=== PATIENT | female | born 1970 | race Caucasian/White ===

== ENCOUNTER 2016-11-28 14:19 | Emergency (ER) | payer BC ==
[2016-11-28 14:41] VITALS: RESP 18
[2016-11-28] MEDS ORDERED: RX INFO: IV CONTRAST WAS GIVEN 1 EACH MISC MISCELLANE PRN (14:54)
--- NOTE | 2016-11-28 15:00 | ED ---
Abdominal Pain HPI - General Chief Complaint: Abdominal Pain Stated Complaint: lump on stomach Time Seen by Provider: 11/28/16 14:47 Source: patient, RN notes reviewed, old records reviewed Mode of arrival: ambulatory Limitations: no limitations - History of Present Illness Initial Comments: 46-year-old female presents emergency Department chief complaint of abdominal mass for the past few months. Patient reports he became increasingly painful whenever she coughs or does certain movements. 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 She states that she's noticed this mass multiple months ago as being growing. Patient denies any fever or chills. Denies any nausea or vomiting or abnormal bowel movements. Denies any surgical history. She denies any abnormal vaginal bleeding. Patient states that she's been having increased hot flashes thinks it is related to starting menopause. - Related Data Home Medications Medication Instructions Recorded Confirmed No Known Home Medications [No 11/28/16 11/28/16 Known Home Medications] Allergies Allergy/AdvReac Type Severity Reaction Status Date / Time No Known Allergies Allergy Verified 11/28/16 14:57 Review of Systems ROS Statement: Those systems with pertinent positive or pertinent negative responses have been documented in the HPI. ROS Other: All systems not noted in ROS Statement are negative. Past Medical History Past Medical History: No Reported History History of Any Multi-Drug Resistant Organisms: None Reported Past Surgical History: Tubal Ligation Past Psychological History: Bipolar Smoking Status: Current every day smoker Past Alcohol Use History: Daily Past Drug Use History: None Reported, Marijuana General Exam - General Exam Comments Initial Comments: 46 Shoh[place] female. No acute distress. Limitations: no limitations General appearance: alert, in no apparent distress Head exam: Present: atraumatic, normocephalic, normal inspection Eye exam: Present: normal appearance, PERRL, EOMI. Absent: scleral icterus, conjunctival injection, periorbital swelling ENT exam: Present: normal exam, mucous membranes moist Neck exam: Present: normal inspection. Absent: tenderness, meningismus, lymphadenopathy Respiratory exam: Present: normal lung sounds bilaterally. Absent: respiratory distress, wheezes, rales, rhonchi, stridor Cardiovascular Exam: Present: regular rate, normal rhythm, normal heart sounds. Absent: systolic murmur, diastolic murmur, rubs, gallop, clicks GI/Abdominal exam: Present: soft, normal bowel sounds, mass (Evidence of suprapubic periumbilical abdominal mass. ). Absent: distended, tenderness, guarding, rebound, rigid Extremities exam: Present: normal inspection, full ROM, normal capillary refill , other. Absent: tenderness, pedal edema, joint swelling, calf tenderness Back exam: Present: normal inspection Neurological exam: Present: alert, oriented X3, CN II-XII intact Psychiatric exam: Present: normal affect, normal mood Skin exam: Present: warm, dry, intact, normal color. Absent: rash Course Vital Signs 11/28/16 11/28/16 14:37 15:40 Temperature 99.8 F H 98.4 F Pulse Rate 83 81 Respiratory 18 18 Rate Blood Pressure 150/72 134/85 O2 Sat by Pulse 100 97 Oximetry Medical Decision Making - Medical Decision Making Is a 46 Shohfi of present the emergency department with a palpable abdominal mass. Patient reports that she's noticed an ingrown increasingly over the past few months. Patient does have normal bowel sounds. No erythema noted over the skin. Patient's laboratory was negative for any abnormalities. CT abdomen and pelvis performed. The CT shows evidence is evidence of a 11 cm pelvic mass consistent with a uterine fibroid. A lengthy discussion with the patient that she needs to follow-up with neurology stroke physician to have this removed. Given that it is not significant tenderness, no fever or any other physical complaints and this is been a long time issue for the patient discussed that she does not need emergent surgery. Discussed she does need follow-up with UROLOGY PHYSICIAN in regards to having the uterine fibroid evaluated and removed. Patient understands treatment plan will comply. Return parameters were discussed. - Lab Data Result diagrams: 11/28/16 15:05 11/28/16 15:05 Lab Results 11/28/16 11/28/16 11/28/16 Range/Units 15:05 15:05 15:05 WBC 9.7 (3.8-10.6) k/uL RBC 4.34 (3.80-5.40) m/uL Hgb 14.4 (11.4-16.0) gm/dL Hct 43.9 (34.0-46.0) % MCV 101.2 H (80.0-100.0) fL MCH 33.3 (25.0-35.0) pg MCHC 32.9 (31.0-37.0) g/dL RDW 13.4 (11.5-15.5) % Plt Count 302 (150-450) k/uL Neutrophils % 65 % Lymphocytes % 23 % Monocytes % 6 % Eosinophils % 2 % Basophils % 1 % Neutrophils # 6.4 (1.3-7.7) k/uL Lymphocytes # 2.2 (1.0-4.8) k/uL Monocytes # 0.6 (0-1.0) k/uL Eosinophils # 0.2 (0-0.7) k/uL Basophils # 0.1 (0-0.2) k/uL Macrocytosis Slight PT 11.4 (9.0-12.0) sec INR 1.1 (<1.2) APTT 24.5 (22.0-30.0) sec Sodium 137 (137-145) mmol/L Potassium 4.5 (3.5-5.1) mmol/L Chloride 105 (98-107) mmol/L Carbon Dioxide 25 (22-30) mmol/L Anion Gap 7 mmol/L BUN 12 (7-17) mg/dL Creatinine 1.00 (0.52-1.04) mg/dL Est GFR (MDRD) Af Amer >60 (>60 ml/min/1.73 sqM) Est GFR (MDRD) Non-Af 60 (>60 ml/min/1.73 sqM) Glucose 103 H (74-99) mg/dL Calcium 9.1 (8.4-10.2) mg/dL Total Bilirubin 1.4 H (0.2-1.3) mg/dL AST 26 (14-36) U/L ALT 33 (9-52) U/L Alkaline Phosphatase 65 (38-126) U/L Total Protein 6.7 (6.3-8.2) g/dL Albumin 4.0 (3.5-5.0) g/dL - Radiology Data Radiology results: report reviewed A large 11 cm suspected intrauterine mass favors a large fibroid. No significant local mass effect is present. Gynecology follow-up advised. Disposition Clinical Impression: Uterine fibroid Disposition: HOME SELF-CARE Condition: Good Instructions: Uterine Fibroids (ED) Additional Instructions: Patient advised to follow-up with UROLOGY PHYSICIAN in regards to the large uterine fibroid. Return to the emergency department if any further alarming signs or symptoms occur. Referrals: None,Stated [Primary Care Provider] - 1-2 days Isaiah Ennis MD [STAFF PHYSICIAN] - 1-2 days Time of Disposition: 16:03
[2016-11-28 15:14] LABS: Basophils # (A) 0.1 k/uL (0-0.2); Basophils % (A) 1 %; CH 34.7; CHCM 34.4; Eosinophils # (A) 0.2 k/uL (0-0.7); Eosinophils % (A) 2 %; HCT 43.9 % (34.0-46.0); HDW 2.11; HGB 14.4 gm/dL (11.4-16.0); Luc # (Auto) 0.24; Luc % (Auto) 3; Lymphocytes # (A) 2.2 k/uL (1.0-4.8); Lymphocytes % (A) 23 %; MCH 33.3 pg (25.0-35.0); MCHC 32.9 g/dL (31.0-37.0); MCV 101.2 fL (80.0-100.0); Macrocytosis Slight; Monocytes # (A) 0.6 k/uL (0-1.0); Monocytes % (A) 6 %; Neutrophils # (A) 6.4 k/uL (1.3-7.7); Neutrophils % (A) 65 %; RBC 4.34 m/uL (3.80-5.40); RDW 13.4 % (11.5-15.5); WBC 9.7 k/uL (3.8-10.6); WBC (Perox) 9.68
[2016-11-28 15:22] LABS: INR 1.1 (<1.2); Partial Thromboplastin Time 24.5 sec (22.0-30.0); Prothrombin Time 11.4 sec (9.0-12.0)
[2016-11-28 15:23] LABS: ALT 33 U/L (9-52); AST 26 U/L (14-36); Alkaline Phosphatase 65 U/L (38-126); Anion Gap 7 mmol/L; Blood Urea Nitrogen 12 mg/dL (7-17); Calcium 9.1 mg/dL (8.4-10.2); Carbon Dioxide 25 mmol/L (22-30); Chloride 105 mmol/L (98-107); Glucose 103 mg/dL (74-99); Non-African American GFR(MDRD) 60 (>60 ml/min/1.73 sqM); Potassium 4.5 mmol/L (3.5-5.1); Sodium 137 mmol/L (137-145); Total Bilirubin 1.4 mg/dL (0.2-1.3); Total Protein 6.7 g/dL (6.3-8.2)
--- NOTE | 2016-11-28 15:38 | CT ---
EXAMINATION TYPE: CT abdomen pelvis w con DATE OF EXAM: 11/28/2016 HISTORY: Lower abdominal pain. Abdominal mass per order. CT DLP: 838mGycm Automated Exposure Control for Dose Reduction was Utilized. CONTRAST: CT scan of the abdomen and pelvis is performed without oral but with IV Contrast, patient injected wi th 100 mL of Omnipaque 300. COMPARISON: None. FINDINGS: LUNG BASES: No significant abnormality is appreciated. LIVER/GB: No significant abnormality is appreciated. PANCREAS: No significant abnormality is seen. SPLEEN: No significant abnormality is seen. ADRENALS: No significant abnormality is seen. KIDNEYS: No significant abnormality is seen. BOWEL: Evaluation bowel is slightly suboptimal due to lack of enteric contrast and patient having lit tle intra-abdominal fat. There is debris filled stomach suggesting recent meal ingestion. There is no suspicious small or large bowel dilatation. UTERUS/ADNEXA: Occupying majority of the lower abdomen suspected within the posterior aspect of uteru s as there is suggestion of normal size endometrial stripe on sagittal image 30 there is heterogeneou s hypodense mass measuring roughly 11 cm transversely by 10 cm in AP diameter by 11 cm craniocaudal d imension on axial image 51, coronal image 35, and sagittal image 30 felt to reflect a large intramura l fibroid. Significant local mass effect on bowel loops is present. In the right adnexa there is 2.3 cm cystic lesion on coronal image 36 confirmed on axial image 47 favoring simple small ovarian cyst o r prominent follicle. Prominent draining ovarian veins are identified bilaterally may be product of m ass effect related to uterine mass. LYMPH NODES: No greater than 1cm abdominal or pelvic lymph nodes are appreciated. OSSEOUS STRUCTURES: No significant abnormality is seen. OTHER: There is mild/moderate calcified plaque throughout the aorta. IMPRESSION: 1. A large 11 cm suspected intrauterine mass favors large fibroid. Significant local mass effect is p resent. Gynecology follow-up advised.
[2016-11-28 15:56] VITALS: BP 134/85; PULSE 81; TEMP 98.4
== END 2016-11-28 16:21 | disposition home or self-care (01) ==
LOC: EC 14:19
DX: D25.9 Leiomyoma of uterus, unspecified (principal); N95.1 Menopausal and female climacteric states; F17.200 Nicotine dependence, unspecified, uncomplicated; Z98.51 Tubal ligation status
CPT/HCPCS: 99284; 36415; 80053; 85025; 85610; 85730; 74177; Q9967

== ENCOUNTER 2017-01-28 07:30 | Inpatient (IN) | payer BC ==
[2017-01-22 10:28] VITALS: BMI 22.2
[~2017-01-28 07:30] MED LIST: ACETAMINOPHEN IV (For NPO) 1,000 MG in EMPTY BAG 1 BAG IVPB ONE; DEXAMETHASONE SOD PHOSPHATE 10 MG/ML 1 ML VIAL IV ONE; LACTATED RINGERS 1,000 ML IV SCH; LIDOCAINE 1% 20 ML VIAL (10MG/ML) FOR IV START INTRADERMA PRN; ONDANSETRON 4 MG/2 ML VIAL IVP ONE; SCOPOLAMINE 1.5MG/72HR PATCH TRANSDERM ONE; ceFAZolin IN SWFI 2 GM/20 ML SYRINGE IVP ONE
[2017-01-28] MEDS ORDERED: MIDAZOLAM 2 MG/2 ML VIAL IVP ONE ×2 (08:20→08:25)
[2017-01-28] MEDS ORDERED: fentaNYL (PF) 50 MCG/ML 2 ML AMP IVP ONE ×2 (08:20→08:27)
[2017-01-28] MEDS ORDERED: IBUPROFEN 600 MG TAB PO PRN (08:26)
[2017-01-28] MEDS ORDERED: ONDANSETRON 4 MG/2 ML VIAL IVP PRN ×2 (08:26→09:30)
[2017-01-28] MEDS ORDERED: Acetaminophen-Codeine 300-30mg TAB PO PRN ×2 (08:26)
[2017-01-28] MEDS ORDERED: NALOXONE 0.4 MG/ML 1 ML VIAL IV PRN ×2 (09:30→13:19)
[2017-01-28] MEDS ORDERED: KETOROLAC 30 MG/ML 1 ML VIAL IVP PRN (09:30)
[2017-01-28] MEDS ORDERED: NALBUPHINE 10 MG/ML AMPUL IV PRN (09:30)
[2017-01-28] MEDS ORDERED: LIDOCAINE 1% INJ 10MG/ML (20 ML MDV) ONE ×2 (09:32→15:55)
[2017-01-28] MEDS ORDERED: ROCURONIUM BROMIDE 10 MG/ML 10 ML VIAL IV ONE (09:32)
[2017-01-28] MEDS ORDERED: MIDAZOLAM 2 MG/2 ML VIAL ONE ×2 (09:32→15:55)
[2017-01-28] MEDS ORDERED: NEOSTIGMINE 1 MG/ML 10 ML VIAL ONE (09:32)
[2017-01-28] MEDS ORDERED: fentaNYL (PF) 50 MCG/ML 2 ML AMP ONE ×2 (09:32→15:55)
[2017-01-28] MEDS ORDERED: KETOROLAC 30 MG/ML 1 ML VIAL ONE (09:32)
[2017-01-28] MEDS ORDERED: SODIUM CHLORIDE 0.9% 50 ML with ceFAZolin 2,000 MG IV ONE ×2 (09:32)
[2017-01-28] MEDS ORDERED: PROPOFOL 10 MG/ML 20 ML VIAL IV ONE ×2 (09:32→15:55)
[2017-01-28] MEDS ORDERED: HYDROmorphone (PF) 1 MG/ML ONE (09:32)
[2017-01-28] MEDS ORDERED: SUCCINYLCHOLINE CHLORIDE 100 MG/5 ML SYR IV ONE (09:32)
[2017-01-28] MEDS ORDERED: GLYCOPYRROLATE 0.2 MG/ML 2 ML VIAL ONE (09:32)
[2017-01-28] MEDS: LACTATED RINGERS 1,000 ML IV SCH ×3 (10:00→21:14)
--- NOTE | 2017-01-28 11:00 | P.OP ---
Date of Procedure: 01/28/17 Preoperative Diagnosis: Enlarged uterus, uterine fibroids Postoperative Diagnosis: Same Procedure(s) Performed: Total abdominal hysterectomy Anesthesia: PASCUALA Surgeon: Savannah Joyce Treasurer #1: Bernice Schmidt Estimated Blood Loss (ml): 125 IV fluids (ml): 900 Urine output (ml): 100 Pathology: other (Uterus cervix) Condition: stable Disposition: PACU Indications for Procedure: Enlarged uterine cavity Operative Findings: Enlarged uterus suspicious for adenomyosis normal ovaries bilaterally Description of Procedure: pt. seen in the preoperative area and informed consent was obtained, risks were reviewed in detail including but not limited to infection, bleeding, damage to bladder, bowel, and ureter injury patient decided to proceed with this procedure and consents were signed. Patient was taken to the operating room where general anesthesia was obtained without difficulty by the anesthesia department. She was then prepped and draped in normal sterile fashion in the dorsal supine position. Rowan catheter was placed under sterile technique. A vertical skin incision was made from just below the umbilicus toward the symphysis pubis. This was carried through to the underlying layer of fascia which was incised and extended superiorly and inferiorly with good visualization. The peritoneum was then identified and entered. The uterus is then delivered through this vertical incision. The round ligament wasn't visualized suture-ligated with good hemostasis. Attention then turned to the utero-ovarian ligament which was doubly clamped with Marylou clamp transected and suture ligated. Hemostasis was appreciated. The bladder flap from the right was then created using sharp and blunt dissection. Attention was then turned to the patient's left round ligament which was suture ligated with good hemostasis. The utero-ovarian ligament was visualized was made in the broad good hemostasis noted and the utero-ovarian ligaments doubly clamped and transected this was then tied off with good hemostasis being noted once again. The bladder flap from the left was created using sharp and blunt dissection. The uterine artery was then visualized doubly clamped and suture ligated. This was then repeated on the opposite side good hemostasis was noted. The bladder flap was continued to be created and clear yellow urine was noted throughout this procedure. A straight clamp was then used along the cervix this was then suture-ligated with good hemostasis once again. A curved clamp was then placed just underneath the cervix and the cervix was then transected. The vaginal cuff was then inspected hemostasis was appreciated. The cuff was then closed with [id number] sutures of 0 Vicryl. After inspection a small amount of bleeding was from the posterior edge therefore one small [id number] was used to obtain hemostasis. All pedicles were inspected hemostasis was noted and all the bladder was noted to be far away from the operating field. Once again the bladder was noted to be draining clear urine. The upper abdomen was explored and no abnormalities were noted. The ovaries were visualized and normal bilaterally. The fascia was then closed with 0 Vicryl in a running fashion from the superior edge to the middle and then the lower edge to the middle. Continues tissue was inspected hemostasis was appreciated the skin was then closed with royal. All counts were correct 2 the patient tolerated procedure well and was taken to the recovery room awake and in stable condition
[2017-01-28] MEDS: HYDROmorphone 0.5 MG/0.5 ML SYRINGE IVP PRN ×2 (11:25→11:31)
[2017-01-28] MEDS: diphenhydrAMINE 50 MG/ML 1 ML VIAL IVP PRN (11:41)
[2017-01-28] MEDS: SENNOSIDES-DOCUSATE SODIUM 1 EACH TAB PO SCH ×2 (13:00→20:28)
[2017-01-28] MEDS ORDERED: IBUPROFEN IV 800 MG in SODIUM CHLORIDE 0.9% 250 ML IV ONE (13:30)
[2017-01-28] MEDS: HYDROmorphone PCA 5 MG/25 ML SYRINGE IV PRN ×3 (14:46→23:52)
[2017-01-28] MEDS ORDERED: ceFAZolin IN SWFI 2 GM/20 ML SYRINGE IVP ONE (15:02)
--- NOTE | 2017-01-28 15:11 | P.PN ---
Progress Note - Text Progress Note Date: 01/28/17 In to see patient secondary to some increased vaginal bleeding sense total abdominal hysterectomy was done this morning. On exam 2 small clots were noted in the vaginal vault the vaginal cuff was inspected and palpated and felt to be intact packing was placed patient tolerated this procedure well. Subsequently the nurse noted the packing to be soaked and still more bleeding therefore the decision was made to take the patient back for an exam under anesthesia with possible cautery/suture closure of vaginal mucosa. This were reviewed with patient including infection, bleeding, damage to bladder. Patient states understanding and wishes to proceed. Anesthesia was notified prior to discussing this with the patient in the will be coming down to take the patient to the operating room.
[2017-01-28] MEDS ORDERED: IV FLUID CONTINUATION 1,000 ML IV ONE (15:50)
[2017-01-28] MEDS ORDERED: ONDANSETRON 4 MG/2 ML VIAL ONE (15:55)
[2017-01-28] MEDS ORDERED: SODIUM CHLORIDE 0.9% 50 ML with ceFAZolin 1,000 MG IV ONE ×2 (16:03)
[2017-01-28] MEDS ORDERED: BACITRACIN 500 UNIT/GM OINT 28.4 GM TUBE TOPICAL ONE (16:16)
[2017-01-28] MEDS ORDERED: LORazepam 2 MG/ML INJ IV PRN ×3 (16:49)
[2017-01-28] MEDS ORDERED: ZOLPIDEM 5 MG TAB PO PRN (16:57)
--- NOTE | 2017-01-28 17:03 | P.OP ---
Date of Procedure: 01/28/17 Preoperative Diagnosis: vaginal bleeding noted s/p DEBORAH Postoperative Diagnosis: same + posterior vaginal mucosal defect Procedure(s) Performed: closure of vaginal defect Anesthesia: MAC Surgeon: Savannah Joyce Events Specialist #1: Bernice Schmidt Estimated Blood Loss (ml): 5 IV fluids (ml): 300 Urine output (ml): 50 Pathology: none sent Condition: stable Disposition: PACU Indications for Procedure: Vaginal bleeding status post abdominal hysterectomy Operative Findings: Posterior vaginal mucosal defect repaired without difficulty, 0 Vicryl stitch Description of Procedure: Patient was taken to the operating room after informed consent was obtained. She was prepped and draped in the normal sterile fashion in the dorsal lithotomy position. Sedation was given by the anesthesia department. Lid speculum was placed in the posterior vaginal vault the vaginal defect was identified and 0 Vicryl was used to close the posterior vaginal defect. Afterwards hemostasis was noted there was no bleeding from the vaginal defect. Vaginal packing was placed against the vaginal cuff. Half-inch iodoform with bacitracin. The Rowan was draining clear yellow urine throughout the procedure. All counts are correct 2 patient tolerated procedure well and was taken to the recovery room awake in stable condition
[2017-01-28] MEDS: NICOTINE 21MG/24HR PATCH TRANSDERM SCH (17:32)
[2017-01-29] MEDS: diphenhydrAMINE 50 MG/ML 1 ML VIAL IVP PRN (02:14)
[2017-01-29] MEDS: LACTATED RINGERS 1,000 ML IV SCH (05:24)
--- NOTE | 2017-01-29 07:46 | P.PN ---
Progress Note - Text Date: 01/29/2017 Time: 707 The patient is status post, total abdominal hysterectomy Vital signs stable VAS: 0-10 Patient has no complaints of pain. The patient incurred some minimal itching yesterday, this itching is now subsiding. Pain meds to be managed by service.
[2017-01-29] MEDS ORDERED: LORazepam 2 MG/ML INJ IV STA (08:20)
--- NOTE | 2017-01-29 08:39 | P.PN ---
Subjective Progress Note Date: 01/29/17 Principal diagnosis: Postop day 1, total abdominal hysterectomy, repair of vaginal cuff defect Meaghan did well overnight. She admits to not sleeping well and is a little upset this morning. We did find out yesterday that she is a 20 a day beer consumer. And I do believe that a little of the withdrawal is affecting her mood this morning. She looks comfortable in bed she has voided on her own after the Rowan was discontinued. She has very little vaginal bleeding this morning a small amount only noted on the vaginal packing when it was removed. She would like her Dilaudid discontinued secondary to lightheadedness, dizziness when walking. She is motivated to start including the halls. She is very anxious to start eating a regular diet. Objective - Vital Signs Vital signs: Vital Signs Temp 97.8 F 01/29/17 07:59 Pulse 76 01/29/17 07:59 Resp 17 01/29/17 07:59 BP 169/79 01/29/17 07:59 Pulse Ox 98 01/29/17 07:59 Intake & Output 01/28/17 01/29/17 01/29/17 18:59 06:59 18:59 Intake Total 2950 Output Total 405 1600 Balance 2545 -1600 Intake: IV 2950 Output: Urine 275 1600 Uretheral (Rowan) 700 Estimated Blood Loss 130 Other: Voiding Method Indwelling Catheter # Voids 1 - Constitutional General appearance: Present: cooperative, no acute distress - Gastrointestinal Gastrointestinal Comment(s): Incision, bandage is clean dry and intact no shadowing is noted General gastrointestinal: Present: decreased bowel sounds. Absent: tenderness - Psychiatric Psychiatric: Present: A&O x's 3, appropriate affect Assessment and Plan (1) Fibroid uterus Narrative/Plan: Given her history of alcohol abuse, we will give Ativan 1 mg for mood/ withdrawal. We will discontinue her Dilaudid LACING PRESSER and start oral Dent 5/325. She is to ambulate this morning. And we will advance her diet to soft. Current Visit: Yes Status: Acute Code(s): D25.9 - LEIOMYOMA OF UTERUS, UNSPECIFIED SNOMED Code(s): 88395426 Time with Patient: Less than 30
[2017-01-29] MEDS: SENNOSIDES-DOCUSATE SODIUM 1 EACH TAB PO SCH (09:13)
[2017-01-29 09:26] LABS: Basophils % (A) 0 %; CH 33.4; Eosinophils # (A) 0.1 k/uL (0-0.7); Eosinophils % (A) 1 %; HCT 39.5 % (34.0-46.0); HDW 1.96; Luc % (Auto) 2; Lymphocytes # (A) 2.9 k/uL (1.0-4.8); Lymphocytes % (A) 28 %; MCHC 31.5 g/dL (31.0-37.0); MCV 104.9 fL (80.0-100.0); Macrocytosis Slight; Mean Platelet Volume 6.6; Monocytes # (A) 0.8 k/uL (0-1.0); Monocytes % (A) 8 %; Neutrophils # (A) 6.6 k/uL (1.3-7.7); Neutrophils % (A) 62 %; RBC 3.76 m/uL (3.80-5.40); RDW 12.4 % (11.5-15.5); WBC 10.6 k/uL (3.8-10.6); WBC (Perox) 10.35
[2017-01-29 09:27] LABS: ALT 32 U/L (9-52); AST 29 U/L (14-36); Anion Gap 6 mmol/L; Blood Urea Nitrogen 6 mg/dL (7-17); Calcium 8.8 mg/dL (8.4-10.2); Carbon Dioxide 27 mmol/L (22-30); Chloride 103 mmol/L (98-107); Glucose 92 mg/dL (74-99); Non-African American GFR(MDRD) >60 (>60 ml/min/1.73 sqM); Potassium 3.3 mmol/L (3.5-5.1); Sodium 136 mmol/L (137-145)
[2017-01-29 09:45] LABS: HGB 12.4 gm/dL (11.4-16.0)
[2017-01-29] MEDS ORDERED: HYDROcodone/APAP 5-325MG 1 EACH TAB PO PRN ×2 (13:16)
[2017-01-29 13:40] VITALS: RESP 16
[2017-01-29] MEDS: NICOTINE 21MG/24HR PATCH TRANSDERM SCH (14:58)
[2017-01-29 15:39] VITALS: BP 144/71; PULSE 94; TEMP 99.7
--- NOTE | 2017-01-29 17:11 | P.DS ---
Providers Date of admission: 01/28/17 07:34 Expected date of discharge: 01/29/17 Attending physician: Savannah Joyce Primary care physician: Marcy Berry - Discharge Diagnosis(es) (1) Fibroid uterus This patient was admitted yesterday to 01 28 for total abdominal hysterectomy secondary to fibroid uterus. She subsequently underwent the surgery without difficulty. Postoperatively she had noted vaginal bleeding which she was taken back to the operating room for closure of vaginal cuff defect. She has done well since this was completed yesterday. She is ambulating and voiding without difficulty. She is tolerating a regular diet and she denies nausea or vomiting. She is very anxious to get home as she has a significant alcohol abuse history in the past. I did discuss with her at length the risks of ileus, small bowel obstruction, possibility of readmission if she goes home today she is very adamant that she wishes to be discharged home. She understands these risks and desires discharge home this evening Current Visit: Yes Status: Acute Patient Condition at Discharge: Good Plan - Discharge Summary Discharge Rx Participant: Yes New Discharge Prescriptions: No Action No Known Home Medications [No Known Home Medications] Discharge Medication List No Known Home Medications [No Known Home Medications] 11/28/16 [History] Follow up Appointment(s)/Referral(s): Savannah Joyce DO [Doctor of Osteopathic Medicine] - As Needed (friday ) Patient Instructions/Handouts: Hysterectomy (DC)
--- NOTE | 2017-02-06 07:59 | CDI ---
In responding to this query, please exercise your independent professional judgment. The [facility] Coding Staff and Clinical Documentation Specialists appreciate your assistance in clarifying documentation, maintaining compliance with coding guidelines, accurately documenting patients condition and capturing severity of illness. The fact that a question is asked does not imply that any particular answer is desired or expected. Communication forms are a method of clarifying documentation and are not made part of the Legal Health Record. Thank you in advance for your clarification. Last Revision, Apr 2016 Rama Tamez [address] [place] [address] Documentation Clarification Form Date: 02/06/2017 7:46:00 AM From: Kaylee Jean Admit Date: 01/28/2017 7:34:00 AM Patient Name: Meaghan Iyer Visit Number: [id number] Discharge Date: 02/06/17 Dr. Savannah Joyce Vaginal bleeding status post total abdominal hysterectomy is documented in the second 01/28 operative report. Patients Admitting Diagnosis: vaginal bleeding noted s/p DEBORAH Post-Operative Diagnosis: same + posterior vaginal mucosal defect Procedure performed: closure of vaginal defect History/Risk Factors: alcohol abuse Clinical Indicators: increase vaginal bleeding following DEBORAH Treatment: return to surgery Consults: none In order to accurately reflect this patients severity of illness, please clarify if the post-operative diagnosis is: An expected post-procedural or post-surgical condition Integral to the procedure Inherent to the procedure An unexpected post-procedural or post-surgical condition, related to surgical care Other, please specify Unable to determine Please document addendum in your discharge summary in order to capture severity of illness and risk of mortality. Include clinical findings that support your diagnosis. FYI: Press F11 to launch patient chart If you have a question about this query, please contact Mercy Argueta, Corporate Trust Officer, [facility] T[facility]z at [phone] between 8am and 5pm. LUIS
== END 2017-01-29 17:23 | disposition home or self-care (01) | DRG 742 ==
LOC: 2ORWHC 07:34 → 4FBP 11:41
PROVIDERS: ADMIT Obstetrics & Gynecology Obstetrics; ATTEND Obstetrics & Gynecology Obstetrics
PROC: 0UTC0ZZ Resection of Cervix, Open Approach (ICD-10-PCS; 2017-01-28)
PROC: 0UQG7ZZ Repair Vagina, Via Natural or Artificial Opening (ICD-10-PCS; 2017-01-28)
PROC: 0UT90ZZ Resection of Uterus, Open Approach (ICD-10-PCS; principal; 2017-01-28 08:30)
DX: D25.9 Leiomyoma of uterus, unspecified (principal); F10.239 Alcohol dependence with withdrawal, unspecified; N99.820 Postprocedural hemorrhage of a genitourinary system organ or structure following a genitourinary system procedure; F17.200 Nicotine dependence, unspecified, uncomplicated
CPT/HCPCS: 80048; 81025; 84450; 84460; 85025; 86850; 86900; 86901; 88307

== ENCOUNTER 2017-02-05 11:29 | Inpatient (IN) | payer BC ==
[2017-02-05 12:20] VITALS: BMI 20.7
[2017-02-05] MEDS ORDERED: LACTATED RINGERS 1,000 ML IV ONE ×2 (12:46→15:05)
[2017-02-05] MEDS ORDERED: LIDOCAINE 1% 20 ML VIAL (10MG/ML) FOR IV START INTRADERMA ONE (12:56)
[2017-02-05] MEDS ORDERED: ONDANSETRON 4 MG/2 ML VIAL IVP ONE (12:57)
[2017-02-05] MEDS ORDERED: DEXAMETHASONE SOD PHOSPHATE 10 MG/ML 1 ML VIAL IV ONE (12:57)
[2017-02-05] MEDS ORDERED: ONDANSETRON 4 MG/2 ML VIAL IVP PRN (14:20)
[2017-02-05] MEDS ORDERED: LORazepam 2 MG/ML INJ IV PRN (14:22)
[2017-02-05] MEDS ORDERED: fentaNYL (PF) 50 MCG/ML 2 ML AMP ONE (14:35)
[2017-02-05] MEDS ORDERED: GLYCOPYRROLATE 0.2 MG/ML 2 ML VIAL ONE (14:35)
[2017-02-05] MEDS ORDERED: NEOSTIGMINE 1 MG/ML 10 ML VIAL ONE (14:35)
[2017-02-05] MEDS ORDERED: SUCCINYLCHOLINE CHLORIDE 100 MG/5 ML SYR IV ONE (14:35)
[2017-02-05] MEDS ORDERED: HYDROmorphone (PF) 1 MG/ML ONE (14:35)
[2017-02-05] MEDS ORDERED: ROCURONIUM BROMIDE 10 MG/ML 10 ML VIAL IV ONE (14:35)
[2017-02-05] MEDS ORDERED: MIDAZOLAM 2 MG/2 ML VIAL ONE (14:35)
[2017-02-05] MEDS ORDERED: PROPOFOL 10 MG/ML 20 ML VIAL IV ONE (14:35)
[2017-02-05] MEDS ORDERED: LIDOCAINE 1% INJ 10MG/ML (20 ML MDV) ONE (14:35)
[2017-02-05] MEDS ORDERED: metroNIDAZOLE-NS PMX 500 MG in SALINE 1 100ML.BAG IVPB ONE (15:00)
[2017-02-05] MEDS ORDERED: HYDROmorphone 1 MG/ML 1 ML SYRINGE IVP PRN (15:30)
--- NOTE | 2017-02-05 15:30 | P.OP ---
Date of Procedure: 02/05/17 Preoperative Diagnosis: wound dehiscence, POD 8 [facility] Procedure(s) Performed: exploration of abdominal wound Surgeon: Savannah Joyce Cattle Brander #1: Ximena Tsai Estimated Blood Loss (ml): 5 IV fluids (ml): 1,000 Pathology: none sent Condition: stable Disposition: PACU Indications for Procedure: open wound dehiscence Operative Findings: upper facial wound dehiscence. bowel run by general surgery, and normal, omentum is intact and no abnormalities. Description of Procedure: Pt was taken to the OR and general anesthesia was obtained by the anesthesia department. A gentle abdominal proctoscopy was noted around the skin dehiscence. The abdomen was then prepped and draped in the normal sterile fashion. The omentum that was protruding was gently washed with dilute Hibiclens. Allis clamps were used to open the skin incision and the fascial defect was noted the upper portion of the fascial incision from the umbilicus toward the midportion of the abdomen was entirely opened with the lower portion closed. Inflammation was noted in the fascial aspect of the open area. At this point Dr. Tsai the general surgeon was brought into the operating suite. She ran the bowel and inspected the omentum no abnormalities were noted. The abdomen was then copiously irrigated with clear fluid noted. The fascial incision was then closed with a looped PDS in a running fashion. The subcutaneous tissue was then irrigated and the skin was closed with 4-0 Monocryl in a running subcuticular fashion. The skin was then additionally closed with royal. Dressings were applied to the abdominal incision. All counts are correct 2. Patient was taken the recovery room awake and in stable condition.
[2017-02-05] MEDS ORDERED: IBUPROFEN IV 800 MG in SODIUM CHLORIDE 0.9% 250 ML IV ONE (15:32)
[2017-02-05] MEDS: HYDROmorphone 1 MG/ML 1 ML SYRINGE IVP ONE ×2 (15:49→16:24)
[2017-02-05] MEDS ORDERED: PIPERACILLIN-TAZOBACTAM 3.375 GM in DEXTROSE/WATER 1 50ML.BAG IVPB SCH (16:00)
--- NOTE | 2017-02-05 16:58 | P.OP ---
Date of Procedure: 02/12/17 Preoperative Diagnosis: Abdominal dehiscence History of hysterectomy 8 days ago Chronic nicotine dependence History of alcohol and marijuana use Postoperative Diagnosis: Same Procedure(s) Performed: Exploration of abdomen and Abdominal washout Anesthesia: JAMES Surgeon: Ximena Tsai Pathology: none sent Condition: stable Disposition: PACU Indications for Procedure: 46 years old female postop day #8 status post open hysterectomy presented with fascial dehiscence with exposure of omentum. Intraoperative consultation requested by cheese supervisor. Operative Findings: Viable small bowel and omentum Description of Procedure: The incision had been opened and hernia contents had been reduced. The omentum was viable and pink. The small bowel was run distally to cecum. The appendix was identified and appeared normal. The small bowel was run from ligament of Treitz to terminal ileum. No ischemic bowel. Normal bowel caliber with peristalsis. The abdominal cavity was washed out with 3 L of warm saline irrigation. The fascial edges were inflamed and mildly indurated. No tension during closure of the fascia. Please see Dr. Joyce's note for remaining of the operative report
[2017-02-05] MEDS: LACTATED RINGERS 1,000 ML IV SCH (17:32)
[2017-02-05] MEDS ORDERED: NICOTINE 21MG/24HR PATCH TRANSDERM SCH (20:30)
[2017-02-06] MEDS: HYDROcodone/APAP 5-325MG 1 EACH TAB PO PRN ×4 (03:58→19:24)
[2017-02-06] MEDS: PIPERACILLIN-TAZOBACTAM 3.375 GM in DEXTROSE/WATER 1 50ML.BAG IVPB SCH ×3 (04:08→21:28)
[2017-02-06] MEDS: LACTATED RINGERS 1,000 ML IV SCH ×2 (04:14→18:48)
[2017-02-06 06:34] LABS: Basophils % (A) 0 %; CH 33.2; CHCM 32.7; Eosinophils # (A) 0.1 k/uL (0-0.7); Eosinophils % (A) 1 %; HDW 2.17; HGB 11.5 gm/dL (11.4-16.0); Luc # (Auto) 0.26; Luc % (Auto) 3; Lymphocytes # (A) 2.2 k/uL (1.0-4.8); Lymphocytes % (A) 23 %; MCH 32.6 pg (25.0-35.0); Monocytes # (A) 0.7 k/uL (0-1.0); Monocytes % (A) 7 %; Neutrophils # (A) 6.4 k/uL (1.3-7.7); Neutrophils % (A) 67 %; RBC 3.53 m/uL (3.80-5.40); RDW 12.2 % (11.5-15.5); WBC 9.6 k/uL (3.8-10.6); WBC (Perox) 9.61
[2017-02-06 07:12] LABS: ALT 32 U/L (9-52); AST 16 U/L (14-36); Alkaline Phosphatase 51 U/L (38-126); Anion Gap 5 mmol/L; Blood Urea Nitrogen 7 mg/dL (7-17); Calcium 8.6 mg/dL (8.4-10.2); Carbon Dioxide 24 mmol/L (22-30); Chloride 106 mmol/L (98-107); Glucose 91 mg/dL (74-99); Non-African American GFR(MDRD) >60 (>60 ml/min/1.73 sqM); Potassium 4.2 mmol/L (3.5-5.1); Sodium 135 mmol/L (137-145); Total Bilirubin 1.5 mg/dL (0.2-1.3); Total Protein 5.6 g/dL (6.3-8.2)
[2017-02-06] MEDS ORDERED: NICOTINE 21MG/24HR PATCH TRANSDERM SCH (07:33)
--- NOTE | 2017-02-06 08:34 | P.PN ---
Subjective Progress Note Date: 02/06/17 Principal diagnosis: Postop day 1, wound dehiscence. Patient did well overnight. She has been ambulating and voiding without difficulty. She states her pain is controlled at this morning with oral medications. She states she has been burping but denies flatus. She denies vaginal bleeding. No nausea or vomiting and she is tolerating ice chips and water. Objective - Vital Signs Vital signs: Vital Signs Temp 97.0 F L 02/06/17 08:04 Pulse 82 02/06/17 08:04 Resp 19 02/06/17 08:04 BP 130/83 02/06/17 08:04 Pulse Ox 96 02/06/17 08:04 Intake & Output 02/05/17 02/06/17 02/06/17 18:59 06:59 18:59 Intake Total 1500 Output Total 165 764 174 Balance 1335 -764 -174 Weight 46.72 kg Intake: IV 1500 Output: Urine 160 475 50 Post Void Residual 289 124 Estimated Blood Loss 5 Other: Voiding Method Toilet # Voids 1 - Constitutional General appearance: Present: cooperative, no acute distress - Respiratory Respiratory: bilateral: CTA - Gastrointestinal Gastrointestinal Comment(s): Incision, bandage is intact no shadowing is noted. General gastrointestinal: Present: normal bowel sounds, soft - Psychiatric Psychiatric: Present: A&O x's 3, appropriate affect - Labs CBC & Chem 7: 02/06/17 06:22 02/06/17 06:22 Labs: Abnormal Lab Results - Last 24 Hours (Table) 02/06/17 02/06/17 Range/Units 06:22 06:22 RBC 3.53 L (3.80-5.40) m/uL MCV 102.0 H (80.0-100.0) fL Sodium 135 L (137-145) mmol/L Total Bilirubin 1.5 H (0.2-1.3) mg/dL Total Protein 5.6 L (6.3-8.2) g/dL Albumin 2.9 L (3.5-5.0) g/dL Assessment and Plan (1) Wound dehiscence Narrative/Plan: Patient has done well postoperatively. She is tolerating clear liquids. She denies nausea or vomiting we will continue routine postoperative care today. And assess later this afternoon. Current Visit: Yes Status: Acute Code(s): T81.30XA - DISRUPTION OF WOUND, UNSPECIFIED, INITIAL ENCOUNTER SNOMED Code(s): 431181055 (2) Alcohol abuse Narrative/Plan: We will continue to monitor signs of withdrawal, she does have Ativan ordered if this becomes an issue. Current Visit: Yes Status: Acute Code(s): F10.10 - ALCOHOL ABUSE, UNCOMPLICATED SNOMED Code(s): 78771082
--- NOTE | 2017-02-06 15:41 | P.PN ---
Subjective Progress Note Date: 02/06/17 Principal diagnosis: POD #1 closure of wound dehiscence, Patient has done well today she is walking and states her pain is controlled. she denies nausea, and is tolerating clear liquids. she is voiding without difficulty. discussed with pt the need for antibiotics given her wound dehisence and alothough she doesnt like it she is willing to stay. she denies any VB no fever chills Objective - Vital Signs Vital signs: Vital Signs Temp 97.0 F L 02/06/17 08:04 Pulse 120 H 02/06/17 13:30 Resp 16 02/06/17 13:30 BP 129/71 02/06/17 13:30 Pulse Ox 96 02/06/17 13:30 Intake & Output 02/05/17 02/06/17 02/06/17 18:59 06:59 18:59 Intake Total 1500 360 Output Total 165 764 549 Balance 1335 -764 -189 Weight 46.72 kg Intake: IV 1500 Oral 360 Output: Urine 160 475 425 Post Void Residual 289 124 Estimated Blood Loss 5 Other: Voiding Method Toilet Toilet # Voids 1 - Constitutional General appearance: Present: cooperative, no acute distress - Gastrointestinal General gastrointestinal: Present: normal bowel sounds, soft - Labs CBC & Chem 7: 02/06/17 06:22 02/06/17 06:22 Labs: Abnormal Lab Results - Last 24 Hours (Table) 02/06/17 02/06/17 Range/Units 06:22 06:22 RBC 3.53 L (3.80-5.40) m/uL MCV 102.0 H (80.0-100.0) fL Sodium 135 L (137-145) mmol/L Total Bilirubin 1.5 H (0.2-1.3) mg/dL Total Protein 5.6 L (6.3-8.2) g/dL Albumin 2.9 L (3.5-5.0) g/dL Assessment and Plan (1) Wound dehiscence Narrative/Plan: will continue her post operative care. plan for d/c home in the am if she does well overnight. well plan for d/c meds norco and augmentin 875 bid. she is aware and wants to go in the am. post operative instructions are also reviewed and will be again in the am. Current Visit: Yes Status: Acute Code(s): T81.30XA - DISRUPTION OF WOUND, UNSPECIFIED, INITIAL ENCOUNTER SNOMED Code(s): 003383190 (2) Alcohol abuse Current Visit: Yes Status: Acute Code(s): F10.10 - ALCOHOL ABUSE, UNCOMPLICATED SNOMED Code(s): 01841766 Time with Patient: Less than 30
[2017-02-06] MEDS ORDERED: HYDROmorphone 2 MG/ML 1 ML SYRINGE IVP PRN (18:31)
[2017-02-07] MEDS: HYDROcodone/APAP 5-325MG 1 EACH TAB PO PRN ×2 (04:24→08:32)
[2017-02-07] MEDS: PIPERACILLIN-TAZOBACTAM 3.375 GM in DEXTROSE/WATER 1 50ML.BAG IVPB SCH (04:26)
[2017-02-07 06:33] LABS: CH 32.8; CHCM 32.9; HCT 37.9 % (34.0-46.0); HDW 2.26; HGB 12.2 gm/dL (11.4-16.0); MCH 32.3 pg (25.0-35.0); MCHC 32.2 g/dL (31.0-37.0); MCV 100.3 fL (80.0-100.0); Mean Platelet Volume 6.7; RBC 3.78 m/uL (3.80-5.40); RDW 12.4 % (11.5-15.5); WBC 9.2 k/uL (3.8-10.6)
--- NOTE | 2017-02-07 08:06 | P.PN ---
Subjective Progress Note Date: 02/07/17 Principal diagnosis: POD #1 closure of wound dehiscence, Patient has done well overnight she is walking and states her pain is controlled. she denies nausea, and is tolerating a regular diet. she is voiding without difficulty. discussed with pt the need for antibiotics given her wound dehisence. she states understanding. she is anxious to go home. she denies any VB no fever chills. she is wearing her abdominal binder Objective - Vital Signs Vital signs: Vital Signs Temp 97.2 F L 02/06/17 23:30 Pulse 89 02/07/17 00:00 Resp 18 02/07/17 00:00 BP 149/88 02/06/17 23:30 Pulse Ox 98 02/06/17 23:30 Intake & Output 02/06/17 02/07/17 02/07/17 18:59 06:59 18:59 Intake Total 360 200 Output Total 849 200 Balance -489 -200 200 Intake: Oral 360 200 Output: Urine 725 200 Post Void Residual 124 Other: Voiding Method Toilet Toilet # Voids 1 2 # Bowel Movements 1 - Constitutional General appearance: Present: cooperative, no acute distress - Gastrointestinal General gastrointestinal: Present: normal bowel sounds, soft (Incision bandage intact no shadowing noted no tenderness on palpation of the abdomen) - Psychiatric Psychiatric: Present: A&O x's 3, appropriate affect - Labs CBC & Chem 7: 02/07/17 06:18 02/06/17 06:22 Labs: Abnormal Lab Results - Last 24 Hours (Table) 02/07/17 Range/Units 06:18 RBC 3.78 L (3.80-5.40) m/uL MCV 100.3 H (80.0-100.0) fL Plt Count 452 H (150-450) k/uL Assessment and Plan (1) Wound dehiscence Narrative/Plan: We'll plan discharge home this morning. She is given prescription for [place], Augmentin. This is discussed with the patient questions are answered. The importance of rest is discussed with her at length. It is stressed that she needs to be in bed up to the bathroom with minimal ambulation at home. She states understanding. She will follow up with myself in the office on Friday. We will take the dressing off at that time. Current Visit: Yes Status: Acute Code(s): T81.30XA - DISRUPTION OF WOUND, UNSPECIFIED, INITIAL ENCOUNTER SNOMED Code(s): 876014564 (2) Alcohol abuse Current Visit: Yes Status: Acute Code(s): F10.10 - ALCOHOL ABUSE, UNCOMPLICATED SNOMED Code(s): 18627868 Time with Patient: Less than 30
--- NOTE | 2017-02-07 08:08 | P.DS ---
Providers Date of admission: 02/05/17 11:35 Expected date of discharge: 02/07/17 Attending physician: Savannah Joyce Primary care physician: Stated None - Discharge Diagnosis(es) (1) Wound dehiscence This is a 47-year-old female that is postop day 2 from expiration of abdominal incision, reclosure of fascial incision secondary to wound dehiscence. She has done well in her postoperative course. She is involuting and voiding without difficulty. She is tolerating a regular diet without nausea or vomiting. She states her pain is controlled with oral medication. She is noting a cough that she has had chronically secondary to tobacco abuse. She denies fevers or chills. And is ready for discharge home. Current Visit: Yes Status: Acute (2) Alcohol abuse Current Visit: Yes Status: Acute Plan - Discharge Summary Discharge Rx Participant: Yes New Discharge Prescriptions: No Action HYDROcodone/APAP 5-325MG [[place] 5-325] 1 tab PO Q4HR PRN PRN Reason: Pain Ibuprofen [Ibuprofen] 600 mg PO Q6HR PRN PRN Reason: Pain Discharge Medication List HYDROcodone/APAP 5-325MG [[place] 5-325] 1 tab PO Q4HR PRN 02/05/17 [History] Ibuprofen [Ibuprofen] 600 mg PO Q6HR PRN 02/05/17 [History] Follow up Appointment(s)/Referral(s): Savannah Joyce DO [Doctor of Osteopathic Medicine] - 1 Week (wed am for po check)
[2017-02-07 08:39] VITALS: BP 157/89; PULSE 97; RESP 19; TEMP 97.4
[2017-02-07] MEDS: LACTATED RINGERS 1,000 ML IV SCH (08:43)
== END 2017-02-07 09:13 | disposition home or self-care (01) | DRG 909 ==
LOC: 6PED 11:35
PROVIDERS: ADMIT Obstetrics & Gynecology Obstetrics; ATTEND Obstetrics & Gynecology Obstetrics
PROC: 3E1M38Z Irrigation of Peritoneal Cavity using Irrigating Substance, Percutaneous Approach (ICD-10-PCS; 2017-02-05)
PROC: 0WQF0ZZ Repair Abdominal Wall, Open Approach (ICD-10-PCS; principal; 2017-02-05 18:10)
DX: T81.32XA Disruption of internal operation (surgical) wound, not elsewhere classified, initial encounter (principal); F10.10 Alcohol abuse, uncomplicated; F17.200 Nicotine dependence, unspecified, uncomplicated; J41.0 Simple chronic bronchitis; Z90.710 Acquired absence of both cervix and uterus
CPT/HCPCS: 80053; 84132; 85025; 85027

== ENCOUNTER 2018-05-18 08:47 | Observation (INO) | payer BC, OTHER ==
[2018-05-18] MEDS ORDERED: ASPIRIN 81 MG PO STA (09:04)
[2018-05-18] MEDS ORDERED: NITROGLYCERIN SL TABS 0.4 MG TAB SUBLINGUAL STA ×3 (09:04)
--- NOTE | 2018-05-18 09:08 | ED ---
General Adult HPI - General Chief complaint: Chest Pain Stated complaint: chest pain Time Seen by Provider: 05/18/18 08:54 Source: patient, RN notes reviewed Mode of arrival: wheelchair Limitations: no limitations - History of Present Illness Initial comments: Patient is a pleasant 47-year-old female presenting to the emergency Department with complaints of chest discomfort. Onset of symptoms was around 2 or 3 in the morning. Discomfort was 8 or 9/10 and is currently 7/10. Discomfort is central chest. Patient does have some associated dyspnea. Patient has a cough however this is chronic. No fevers. No vomiting or sweating. No history of similar symptoms previously. No leg pain or leg swelling. - Related Data Home Medications Medication Instructions Recorded Confirmed No Known Home Medications 05/18/18 05/18/18 Allergies Allergy/AdvReac Type Severity Reaction Status Date / Time No Known Allergies Allergy Verified 05/18/18 09:57 Review of Systems ROS Statement: Those systems with pertinent positive or pertinent negative responses have been documented in the HPI. ROS Other: All systems not noted in ROS Statement are negative. Constitutional: Denies: fever Eyes: Denies: eye pain ENT: Denies: ear pain Respiratory: Reports: cough (Chronic and unchanged), dyspnea Cardiovascular: Reports: chest pain Endocrine: Denies: fatigue Gastrointestinal: Denies: abdominal pain Genitourinary: Denies: dysuria Musculoskeletal: Denies: back pain Skin: Denies: rash Neurological: Denies: weakness Past Medical History Past Medical History: No Reported History History of Any Multi-Drug Resistant Organisms: None Reported Past Surgical History: Hysterectomy, Tubal Ligation Past Anesthesia/Blood Transfusion Reactions: No Reported Reaction Past Psychological History: No Psychological Hx Reported Smoking Status: Current every day smoker Past Alcohol Use History: Daily Past Drug Use History: Marijuana - Past Family History Mother Family Medical History: Cancer General Exam Limitations: no limitations General appearance: alert, in no apparent distress Head exam: Present: atraumatic Eye exam: Present: normal appearance, PERRL ENT exam: Present: normal oropharynx Neck exam: Present: normal inspection Respiratory exam: Present: normal lung sounds bilaterally, chest wall tenderness (Mild lower sternal) Cardiovascular Exam: Present: tachycardia Expanded Peripheral pulses: 2+: Radial (R), Radial (L), Posterior Tibialis (R), Posterior Tibialis (L) GI/Abdominal exam: Present: soft. Absent: tenderness Extremities exam: Present: normal inspection. Absent: pedal edema, calf tenderness Neurological exam: Present: alert Psychiatric exam: Present: normal affect, normal mood Skin exam: Present: normal color Course Vital Signs 05/18/18 05/18/18 05/18/18 08:50 09:20 09:39 Temperature 99.4 F Pulse Rate 113 H 115 H 105 H Respiratory 22 16 18 Rate Blood Pressure 168/78 137/99 145/94 O2 Sat by Pulse 96 99 99 Oximetry 05/18/18 10:25 Temperature Pulse Rate 96 Respiratory 16 Rate Blood Pressure 149/88 O2 Sat by Pulse 99 Oximetry EKG Findings - EKG Comments: EKG Findings:: Sinus tachycardia 112. [place] 124. QRS 86. QT 316. QTC 431. Normal axis. Normal QRS. No acute ST change. Medical Decision Making - Medical Decision Making Patient reevaluated and is feeling much better following nitroglycerin. Patient and family updated on results and plan. Case was discussed in detail with Dr. Reinoso, covering for Dr. Berry, who will admit. - Lab Data Result diagrams: 05/18/18 09:11 05/18/18 09:11 Lab Results 05/18/18 05/18/18 05/18/18 Range/Units 09:11 09:11 09:11 WBC 11.8 H (3.8-10.6) k/uL RBC 5.21 (3.80-5.40) m/uL Hgb 16.9 H (11.4-16.0) gm/dL Hct 51.2 H (34.0-46.0) % MCV 98.3 (80.0-100.0) fL MCH 32.4 (25.0-35.0) pg MCHC 33.0 (31.0-37.0) g/dL RDW 12.9 (11.5-15.5) % Plt Count 254 (150-450) k/uL Neutrophils % 83 % Lymphocytes % 8 % Monocytes % 7 % Eosinophils % 1 % Basophils % 1 % Neutrophils # 9.8 H (1.3-7.7) k/uL Lymphocytes # 0.9 L (1.0-4.8) k/uL Monocytes # 0.9 (0-1.0) k/uL Eosinophils # 0.1 (0-0.7) k/uL Basophils # 0.1 (0-0.2) k/uL PT 10.1 (9.0-12.0) sec INR 0.9 (<1.2) APTT 25.8 (22.0-30.0) sec D-Dimer 0.59 (<0.60) mg/L FEU Sodium 137 (137-145) mmol/L Potassium 4.5 (3.5-5.1) mmol/L Chloride 100 (98-107) mmol/L Carbon Dioxide 26 (22-30) mmol/L Anion Gap 11 mmol/L BUN 9 (7-17) mg/dL Creatinine 0.49 L (0.52-1.04) mg/dL Est GFR (CKD-EPI)AfAm >90 (>60 ml/min/1.73 sqM) Est GFR (CKD-EPI)NonAf >90 (>60 ml/min/1.73 sqM) Glucose 144 H (74-99) mg/dL Calcium 10.3 H (8.4-10.2) mg/dL Magnesium 1.7 (1.6-2.3) mg/dL Total Bilirubin 1.9 H (0.2-1.3) mg/dL AST 28 (14-36) U/L ALT 35 (9-52) U/L Alkaline Phosphatase 85 (38-126) U/L Troponin I (0.000-0.034) ng/mL NT-Pro-B Natriuret Pep pg/mL Total Protein 8.5 H (6.3-8.2) g/dL Albumin 5.2 H (3.5-5.0) g/dL Amylase 47 (30-110) U/L Lipase 71 (23-300) U/L Influenza Type A RNA (Not Detectd) Influenza Type B (PCR) (Not Detectd) 05/18/18 05/18/18 05/18/18 Range/Units 09:11 09:11 09:11 WBC (3.8-10.6) k/uL RBC (3.80-5.40) m/uL Hgb (11.4-16.0) gm/dL Hct (34.0-46.0) % MCV (80.0-100.0) fL MCH (25.0-35.0) pg MCHC (31.0-37.0) g/dL RDW (11.5-15.5) % Plt Count (150-450) k/uL Neutrophils % % Lymphocytes % % Monocytes % % Eosinophils % % Basophils % % Neutrophils # (1.3-7.7) k/uL Lymphocytes # (1.0-4.8) k/uL Monocytes # (0-1.0) k/uL Eosinophils # (0-0.7) k/uL Basophils # (0-0.2) k/uL PT (9.0-12.0) sec INR (<1.2) APTT (22.0-30.0) sec D-Dimer (<0.60) mg/L FEU Sodium (137-145) mmol/L Potassium (3.5-5.1) mmol/L Chloride (98-107) mmol/L Carbon Dioxide (22-30) mmol/L Anion Gap mmol/L BUN (7-17) mg/dL Creatinine (0.52-1.04) mg/dL Est GFR (CKD-EPI)AfAm (>60 ml/min/1.73 sqM) Est GFR (CKD-EPI)NonAf (>60 ml/min/1.73 sqM) Glucose (74-99) mg/dL Calcium (8.4-10.2) mg/dL Magnesium (1.6-2.3) mg/dL Total Bilirubin (0.2-1.3) mg/dL AST (14-36) U/L ALT (9-52) U/L Alkaline Phosphatase (38-126) U/L Troponin I <0.012 (0.000-0.034) ng/mL NT-Pro-B Natriuret Pep 218 pg/mL Total Protein (6.3-8.2) g/dL Albumin (3.5-5.0) g/dL Amylase (30-110) U/L Lipase (23-300) U/L Influenza Type A RNA Not Detected (Not Detectd) Influenza Type B (PCR) Not Detected (Not Detectd) - Radiology Data Radiology results: image reviewed (Chest x-ray shows no acute process) Disposition Clinical Impression: Chest pain Disposition: ADMITTED IP TO THIS HOSP Is patient prescribed a controlled substance at d/c from ED?: No Referrals: Marcy Berry MD [Primary Care Provider] - 1-2 days Decision Time: 10:39
[2018-05-18 09:41] LABS: Basophils # (A) 0.1 k/uL (0-0.2); Basophils % (A) 1 %; Eosinophils # (A) 0.1 k/uL (0-0.7); Eosinophils % (A) 1 %; HCT 51.2 % (34.0-46.0); HGB 16.9 gm/dL (11.4-16.0); Lymphocytes # (A) 0.9 k/uL (1.0-4.8); Lymphocytes % (A) 8 %; MCH 32.4 pg (25.0-35.0); MCV 98.3 fL (80.0-100.0); Mean Platelet Volume 6.5; Monocytes # (A) 0.9 k/uL (0-1.0); Monocytes % (A) 7 %; Neutrophils # (A) 9.8 k/uL (1.3-7.7); Neutrophils % (A) 83 %; Platelet Count 254 k/uL (150-450); RBC 5.21 m/uL (3.80-5.40); RDW 12.9 % (11.5-15.5); WBC 11.8 k/uL (3.8-10.6)
--- NOTE | 2018-05-18 09:42 | XR ---
EXAMINATION TYPE: XR chest 2V DATE OF EXAM: 05/18/2018 COMPARISON: NONE HISTORY: Chest pain. TECHNIQUE: Frontal and lateral views of the chest are obtained. FINDINGS: Overlying EKG leads are seen. There is no focal air space opacity, pleural effusion, or pne umothorax seen. The cardiac silhouette size is within normal limits. The osseous structures are in tact. IMPRESSION: No acute process.
[2018-05-18 09:49] LABS: ALT 35 U/L (9-52); AST 28 U/L (14-36); Albumin 5.2 g/dL (3.5-5.0); Alkaline Phosphatase 85 U/L (38-126); Amylase 47 U/L (30-110); Anion Gap 11 mmol/L; Blood Urea Nitrogen 9 mg/dL (7-17); Calcium 10.3 mg/dL (8.4-10.2); Carbon Dioxide 26 mmol/L (22-30); Chloride 100 mmol/L (98-107); Glucose 144 mg/dL (74-99); Lipase 71 U/L (23-300); Magnesium 1.7 mg/dL (1.6-2.3); Potassium 4.5 mmol/L (3.5-5.1); Sodium 137 mmol/L (137-145); Total Bilirubin 1.9 mg/dL (0.2-1.3); Total Protein 8.5 g/dL (6.3-8.2)
[2018-05-18 10:10] LABS: D-Dimer 0.59 mg/L FEU (<0.60); INR 0.9 (<1.2); Partial Thromboplastin Time 25.8 sec (22.0-30.0); Prothrombin Time 10.1 sec (9.0-12.0)
[2018-05-18] MEDS ORDERED: NITROGLYCERIN SL TABS 0.4 MG TAB SUBLINGUAL PRN (10:39)
[2018-05-18] MEDS: NITROGLYCERIN OINT 1 INCH/GM PACKET TOPICAL SCH ×2 (12:52→18:37)
--- NOTE | 2018-05-18 13:38 | P.HPIM ---
History of Present Illness H&P Date: 05/18/18 Is as a 47-year-old female patient of Dr. Berry. Patient presents to the ER with complaints of chest pain. Patient states that chest pain woke up from her sleep around 2 or 3 in the morning. Patient describes pain as sharp centralized pain in chest. Patient denies any radiation to neck jaw chest or back. Patient does report some associated dyspnea. Patient does reports she has chronic cough. Patient is a smoker one pack per day. Patient denies any significant cardiac history for herself. Patient does report cramping had heart attacks in the past. Patient denies any other significant medical history. Chest x-ray completed in ER showing no acute process. EKG completed showing sinus tachycardia. Troponin negative. Influenza negative. D-dimer 0.59 At this time patient denies chest pain or shortness of breath. Patient denies nausea vomiting or diarrhea. Patient denies any urinary burning or frequency. Review of Systems Please refer to HPI otherwise unremarkable. Past Medical History Past Medical History: No Reported History Additional Past Medical History / Comment(s): Occasional back and shoulder pain. History of Any Multi-Drug Resistant Organisms: None Reported Past Surgical History: Hysterectomy, Tubal Ligation Past Anesthesia/Blood Transfusion Reactions: No Reported Reaction Past Psychological History: No Psychological Hx Reported Additional Psychological History / Comment(s): Pt resides with her spouse. She is independent. Smoking Status: Current every day smoker Past Alcohol Use History: Daily Additional Past Alcohol Use History / Comment(s): Pt states she started smoking as a teen and smokes 1 PPD. Pt states she drinks a 12 pack of beer a day. She last drank yesterday 05/17/18. Past Drug Use History: Marijuana Additional Drug Use History / Comment(s): Pt states she occasionally smokes marijuana. - Past Family History Mother Family Medical History: Cancer Father Family Medical History: Cancer Additional Family Medical History / Comment(s): Father had colon cancer with surgery. He is living. Medications and Allergies Home Medications Medication Instructions Recorded Confirmed Type No Known Home Medications 05/18/18 05/18/18 History Allergies Allergy/AdvReac Type Severity Reaction Status Date / Time No Known Allergies Allergy Verified 05/18/18 09:57 Physical Exam Vitals: Vital Signs Temp Pulse Resp BP Pulse Ox 05/18/18 10:25 96 16 149/88 99 05/18/18 09:39 105 H 18 145/94 99 05/18/18 09:20 115 H 16 137/99 99 05/18/18 08:50 99.4 F 113 H 22 168/78 96 Intake and Output 05/17/18 05/18/18 05/18/18 22:59 06:59 14:59 Other: Weight 55.792 kg Head normocephalic Neck supple Lungs diminished bilaterally Heart regular rate and rhythm S1-S2, no rub or gallop Abdomen is soft nontender nondistended positive bowel sounds no hepatosplenomegaly Extremities no edema Neuro alert and orientated to 3 Results CBC & Chem 7: 05/18/18 09:11 05/18/18 09:11 Labs: Abnormal Lab Results - Last 24 Hours (Table) 05/18/18 05/18/18 Range/Units 09:11 09:11 WBC 11.8 H (3.8-10.6) k/uL Hgb 16.9 H (11.4-16.0) gm/dL Hct 51.2 H (34.0-46.0) % Neutrophils # 9.8 H (1.3-7.7) k/uL Lymphocytes # 0.9 L (1.0-4.8) k/uL Creatinine 0.49 L (0.52-1.04) mg/dL Glucose 144 H (74-99) mg/dL Calcium 10.3 H (8.4-10.2) mg/dL Total Bilirubin 1.9 H (0.2-1.3) mg/dL Total Protein 8.5 H (6.3-8.2) g/dL Albumin 5.2 H (3.5-5.0) g/dL Thrombosis Risk Factor Assmnt - Choose All That Apply Any of the Below Risk Factors Present?: Yes Each Factor Represents 1 point: Age 41-60 years Other Risk Factors: No Other congenital or acquired thrombophilia - If yes, enter type in comment: No Thrombosis Risk Factor Assessment Total Risk Factor Score: 1 Thrombosis Risk Factor Assessment Level: Low Risk Assessment and Plan Assessment: 1. Chest pain. Troponin negative. EKG completed showing sinus tachycardia heart rate 112. D-dimer 0.59. Chest x-ray completed showing no acute process. Cardiology services have been consulted 2. Nicotine Dependence. Patient educated greater than 3 minutes on smoking sensation. Will Order nicotine patch at this time 3. Elevated total bilirubin 1.9. AST and ALT within normal limits. We'll continue to monitor 4. History of hysterectomy. Time with Patient: Greater than 30 (Greater than 60% of the total time spent in counseling and coordination of care. I performed an examination of the patient and discussed their management with the Nurse Practitioner. I have reviewed the Nurse Practitioner's notes and agree with the documented findings and plan of care)
[2018-05-18] MEDS: NICOTINE 14MG/24HR PATCH TRANSDERM SCH (15:15)
[2018-05-18] MEDS ORDERED: ACETAMINOPHEN TAB 325 MG TAB PO PRN (19:03)
[2018-05-19] MEDS: NITROGLYCERIN OINT 1 INCH/GM PACKET TOPICAL SCH ×2 (01:38→06:03)
[2018-05-19 07:17] VITALS: RESP 18
[2018-05-19 08:31] LABS: Basophils % (A) 0 %; Eosinophils # (A) 0.1 k/uL (0-0.7); Eosinophils % (A) 1 %; HCT 48.9 % (34.0-46.0); HGB 15.8 gm/dL (11.4-16.0); Lymphocytes # (A) 1.9 k/uL (1.0-4.8); Lymphocytes % (A) 21 %; MCH 32.5 pg (25.0-35.0); MCHC 32.3 g/dL (31.0-37.0); MCV 100.4 fL (80.0-100.0); Monocytes # (A) 0.8 k/uL (0-1.0); Monocytes % (A) 9 %; Neutrophils % (A) 66 %; Platelet Count 236 k/uL (150-450); RBC 4.87 m/uL (3.80-5.40); RDW 13.1 % (11.5-15.5); WBC 9.1 k/uL (3.8-10.6)
[2018-05-19 08:42] LABS: ALT 24 U/L (9-52); AST 18 U/L (14-36); Albumin 4.5 g/dL (3.5-5.0); Alkaline Phosphatase 70 U/L (38-126); Anion Gap 8 mmol/L; Blood Urea Nitrogen 9 mg/dL (7-17); Carbon Dioxide 28 mmol/L (22-30); Chloride 104 mmol/L (98-107); Cholesterol 198 mg/dL (<200); Glucose 112 mg/dL (74-99); Potassium 5.1 mmol/L (3.5-5.1); Sodium 140 mmol/L (137-145); Total Bilirubin 2.8 mg/dL (0.2-1.3); Total Protein 7.6 g/dL (6.3-8.2); Triglycerides 52 mg/dL (<150)
[2018-05-19 08:49] LABS: LDL Cholesterol,Calculated 72 mg/dL (0-99)
[2018-05-19] MEDS ORDERED: ASPIRIN 325 MG TAB PO SCH (09:00)
[2018-05-19] MEDS ORDERED: NICOTINE 14MG/24HR PATCH TRANSDERM SCH (09:00)
[2018-05-19 09:06] LABS: HDL Cholesterol 116 mg/dL (40-60)
--- NOTE | 2018-05-19 10:47 | P.CRDCN ---
History of Present Illness History of present illness: This is a pleasant 47 year old female past medical history significant for chronic nicotine dependence as well as daily alcohol intake of approximately 12 beers per day. She denies history of coronary artery disease, hypertension, dyslipidemia or diabetes mellitus. We have been asked to see her in consultation for symptoms of chest discomfort. She states she woke up on the Friday evening around 2:00 in the morning with symptoms of burning in the midsternal region. There is no radiation through to the back, down the arms, into the neck or jaw. She felt associated was mildly short of breath along with discomfort. The symptoms persisted through the night and most of the day yesterday with no specific aggravating or alleviating factors. Ultimately it went away on their own. She was given nitroglycerin upon arrival to the emergency department and this did not help. Currently she is seen and examined resting comfortably in bed in no acute distress and is currently chest pain- free. Her shortness of breath has also subsided. She denies any associated palpitations, dizziness, nausea, vomiting or diaphoresis. EKG reveals sinus mechanism with no acute ST-T wave abnormalities noted. Chest x-ray is negative for an acute cardiopulmonary process. Laboratory data reviewed, WBC on admission 11.8 down to 9.1 today, hemoglobin 15.8, platelets 236, d-dimer 0.59, sodium 140, potassium 5.1, creatinine 0.47, magnesium on admission 1.7, cardiac enzymes negative 3, NT proBNP 218, LDL 72, HDL 116 and TSH 3.66. She takes no daily cardiac medications. At the time of my exam: CONSTITUTIONAL: Denies fever. Denies chills. EYES: Denies blurred vision. Denies vision changes. Denies eye pain. EARS, NOSE, MOUTH & THROAT: Denies headache. Denies sore throat. Denies ear pain. CARDIOVASCULAR: Denies chest pain. Denies shortness of breath. Denies orthopnea. Denies PND. Denies palpitations. RESPIRATORY: Denies cough. GASTROINTESTINAL: Denies abdominal pain. Denies diarrhea. Denies constipation. Denies nausea. Denies vomiting. MUSCULOSKELETAL: Denies myalgias. INTEGUMENTARY: Denies pruitis. Denies rash. NEUROLOGIC: Denies numbness. Denies tingling. Denies weakness. PSYCHIATRIC: Denies anxiety. Denies depression. ENDOCRINE: Denies fatigue. Denies weight change. Denies polydipsia. Denies polyurina. GENITOURINARY: Denies burning, hematuria or urgency with micturation. HEMATOLOGIC: Denies history of anemia. Denies bleeding. Blood pressure 126/76 heart rate 89 afebrile maintaining oxygen saturation on room air GENERAL: This is a 47-year-old occasion female in no apparent distress at the time of my examination. HEENT: Head is atraumatic, normocephalic. Pupils are equal, round. Sclerae anicteric. Conjunctivae are clear. Mucous membranes of the mouth are moist. Neck is supple. There is no jugular venous distention. No carotid bruit is heard. LUNGS: Clear to auscultation no wheezes, rales or rhonchi. No chest wall tenderness is noted on palpation or with deep breathing. Diminished bilaterally. HEART: Regular rate and rhythm without murmurs, rubs or gallops. S1 and S2 heard. ABDOMEN: Soft, nontender. Bowel sounds are heard. No organomegaly noted. EXTREMITIES: No evidence of peripheral edema and no calf tenderness noted. VASCULAR: Radial and dorsalis pedis pulses palpated, no evidence of clubbing. NEUROLOGIC: Patient is awake, alert and oriented x3. ASSESSMENT Chest pain, atypical. An acute coronary event has been ruled out was no EKG evidence of ischemia and negative cardiac enzymes. Chronic nicotine dependence Daily alcohol abuse PLAN Acute coronary event has been ruled out with no EKG evidence of ischemia and negative cardiac enzymes. Obtain 2-D echocardiogram and Doppler study to assess cardiac structure and function. Perform exercise stress test to assess for exercise-induced ischemia. Smoking and alcohol cessation highly recommended. If stress test is normal she is stable for discharge home from a cardiac perspective. Thank you kindly for this consultation. Nurse Practitioner note has been reviewed, I agree with a documented findings and plan of care. Patient was seen and examined. Past Medical History Past Medical History: No Reported History Additional Past Medical History / Comment(s): Occasional back and shoulder pain. History of Any Multi-Drug Resistant Organisms: None Reported Past Surgical History: Hysterectomy, Tubal Ligation Past Anesthesia/Blood Transfusion Reactions: No Reported Reaction Past Psychological History: No Psychological Hx Reported Additional Psychological History / Comment(s): Pt resides with her spouse. She is independent. Smoking Status: Current every day smoker Past Alcohol Use History: Daily Additional Past Alcohol Use History / Comment(s): Pt states she started smoking as a teen and smokes 1 PPD. Pt states she drinks a 12 pack of beer a day. She last drank yesterday 05/17/18. Past Drug Use History: Marijuana Additional Drug Use History / Comment(s): Pt states she occasionally smokes marijuana. - Past Family History Mother Family Medical History: Cancer Father Family Medical History: Cancer Additional Family Medical History / Comment(s): Father had colon cancer with surgery. He is living. Medications and Allergies Home Medications Medication Instructions Recorded Confirmed Type No Known Home Medications 05/18/18 05/18/18 History Allergies Allergy/AdvReac Type Severity Reaction Status Date / Time No Known Allergies Allergy Verified 05/18/18 09:57 Physical Exam Vitals: Vital Signs Temp Pulse Pulse Resp BP BP Pulse Ox 05/19/18 07:21 94 L 05/19/18 07:05 98.6 F 89 18 126/76 97 05/19/18 03:54 98.5 F 93 16 113/67 93 L 05/18/18 23:56 16 05/18/18 23:07 98.3 F 94 16 133/80 97 05/18/18 20:00 16 05/18/18 19:51 97 05/18/18 19:32 98.8 F 109 H 16 129/81 96 05/18/18 16:00 107 H 16 05/18/18 15:19 16 05/18/18 15:00 99.0 F 107 H 18 143/79 97 05/18/18 10:25 96 16 149/88 99 05/18/18 09:39 105 H 18 145/94 99 05/18/18 09:20 115 H 16 137/99 99 05/18/18 08:50 99.4 F 113 H 22 168/78 96 Intake and Output 05/18/18 05/19/18 05/19/18 22:59 06:59 14:59 Intake Total 200 Balance 200 Intake: Oral 200 Other: Voiding Method Toilet Toilet # Voids 2 2 Results 05/19/18 07:57 05/19/18 07:57 Cardiac Enzymes 05/18/18 05/18/18 05/18/18 Range/Units 09:11 09:11 09:11 WBC 11.8 H (3.8-10.6) k/uL RBC 5.21 (3.80-5.40) m/uL Hgb 16.9 H (11.4-16.0) gm/dL Hct 51.2 H (34.0-46.0) % MCV 98.3 (80.0-100.0) fL MCH 32.4 (25.0-35.0) pg MCHC 33.0 (31.0-37.0) g/dL RDW 12.9 (11.5-15.5) % Plt Count 254 (150-450) k/uL Neutrophils % 83 % Lymphocytes % 8 % Monocytes % 7 % Eosinophils % 1 % Basophils % 1 % Neutrophils # 9.8 H (1.3-7.7) k/uL Lymphocytes # 0.9 L (1.0-4.8) k/uL Monocytes # 0.9 (0-1.0) k/uL Eosinophils # 0.1 (0-0.7) k/uL Basophils # 0.1 (0-0.2) k/uL PT 10.1 (9.0-12.0) sec INR 0.9 (<1.2) APTT 25.8 (22.0-30.0) sec D-Dimer 0.59 (<0.60) mg/L FEU Sodium 137 (137-145) mmol/L Potassium 4.5 (3.5-5.1) mmol/L Chloride 100 (98-107) mmol/L Carbon Dioxide 26 (22-30) mmol/L Anion Gap 11 mmol/L BUN 9 (7-17) mg/dL Creatinine 0.49 L (0.52-1.04) mg/dL Est GFR (CKD-EPI)AfAm >90 (>60 ml/min/1.73 sqM) Est GFR (CKD-EPI)NonAf >90 (>60 ml/min/1.73 sqM) Glucose 144 H (74-99) mg/dL Calcium 10.3 H (8.4-10.2) mg/dL Magnesium 1.7 (1.6-2.3) mg/dL Total Bilirubin 1.9 H (0.2-1.3) mg/dL AST 28 (14-36) U/L ALT 35 (9-52) U/L Alkaline Phosphatase 85 (38-126) U/L Troponin I (0.000-0.034) ng/mL NT-Pro-B Natriuret Pep pg/mL Total Protein 8.5 H (6.3-8.2) g/dL Albumin 5.2 H (3.5-5.0) g/dL Amylase 47 (30-110) U/L Lipase 71 (23-300) U/L Influenza Type A RNA (Not Detectd) Influenza Type B (PCR) (Not Detectd) 05/18/18 05/18/18 05/18/18 Range/Units 09:11 09:11 09:11 WBC (3.8-10.6) k/uL RBC (3.80-5.40) m/uL Hgb (11.4-16.0) gm/dL Hct (34.0-46.0) % MCV (80.0-100.0) fL MCH (25.0-35.0) pg MCHC (31.0-37.0) g/dL RDW (11.5-15.5) % Plt Count (150-450) k/uL Neutrophils % % Lymphocytes % % Monocytes % % Eosinophils % % Basophils % % Neutrophils # (1.3-7.7) k/uL Lymphocytes # (1.0-4.8) k/uL Monocytes # (0-1.0) k/uL Eosinophils # (0-0.7) k/uL Basophils # (0-0.2) k/uL PT (9.0-12.0) sec INR (<1.2) APTT (22.0-30.0) sec D-Dimer (<0.60) mg/L FEU Sodium (137-145) mmol/L Potassium (3.5-5.1) mmol/L Chloride (98-107) mmol/L Carbon Dioxide (22-30) mmol/L Anion Gap mmol/L BUN (7-17) mg/dL Creatinine (0.52-1.04) mg/dL Est GFR (CKD-EPI)AfAm (>60 ml/min/1.73 sqM) Est GFR (CKD-EPI)NonAf (>60 ml/min/1.73 sqM) Glucose (74-99) mg/dL Calcium (8.4-10.2) mg/dL Magnesium (1.6-2.3) mg/dL Total Bilirubin (0.2-1.3) mg/dL AST (14-36) U/L ALT (9-52) U/L Alkaline Phosphatase (38-126) U/L Troponin I <0.012 (0.000-0.034) ng/mL NT-Pro-B Natriuret Pep 218 pg/mL Total Protein (6.3-8.2) g/dL Albumin (3.5-5.0) g/dL Amylase (30-110) U/L Lipase (23-300) U/L Influenza Type A RNA Not Detected (Not Detectd) Influenza Type B (PCR) Not Detected (Not Detectd) 05/18/18 05/18/18 Range/Units 15:47 20:55 WBC (3.8-10.6) k/uL RBC (3.80-5.40) m/uL Hgb (11.4-16.0) gm/dL Hct (34.0-46.0) % MCV (80.0-100.0) fL MCH (25.0-35.0) pg MCHC (31.0-37.0) g/dL RDW (11.5-15.5) % Plt Count (150-450) k/uL Neutrophils % % Lymphocytes % % Monocytes % % Eosinophils % % Basophils % % Neutrophils # (1.3-7.7) k/uL Lymphocytes # (1.0-4.8) k/uL Monocytes # (0-1.0) k/uL Eosinophils # (0-0.7) k/uL Basophils # (0-0.2) k/uL PT (9.0-12.0) sec INR (<1.2) APTT (22.0-30.0) sec D-Dimer (<0.60) mg/L FEU Sodium (137-145) mmol/L Potassium (3.5-5.1) mmol/L Chloride (98-107) mmol/L Carbon Dioxide (22-30) mmol/L Anion Gap mmol/L BUN (7-17) mg/dL Creatinine (0.52-1.04) mg/dL Est GFR (CKD-EPI)AfAm (>60 ml/min/1.73 sqM) Est GFR (CKD-EPI)NonAf (>60 ml/min/1.73 sqM) Glucose (74-99) mg/dL Calcium (8.4-10.2) mg/dL Magnesium (1.6-2.3) mg/dL Total Bilirubin (0.2-1.3) mg/dL AST (14-36) U/L ALT (9-52) U/L Alkaline Phosphatase (38-126) U/L Troponin I <0.012 <0.012 (0.000-0.034) ng/mL NT-Pro-B Natriuret Pep pg/mL Total Protein (6.3-8.2) g/dL Albumin (3.5-5.0) g/dL Amylase (30-110) U/L Lipase (23-300) U/L Influenza Type A RNA (Not Detectd) Influenza Type B (PCR) (Not Detectd) Coagulation 05/18/18 Range/Units 09:11 PT 10.1 (9.0-12.0) sec APTT 25.8 (22.0-30.0) sec CBC 05/18/18 Range/Units 09:11 WBC 11.8 H (3.8-10.6) k/uL RBC 5.21 (3.80-5.40) m/uL Hgb 16.9 H (11.4-16.0) gm/dL Hct 51.2 H (34.0-46.0) % Plt Count 254 (150-450) k/uL Comprehensive Metabolic Panel 05/18/18 Range/Units 09:11 Sodium 137 (137-145) mmol/L Potassium 4.5 (3.5-5.1) mmol/L Chloride 100 (98-107) mmol/L Carbon Dioxide 26 (22-30) mmol/L BUN 9 (7-17) mg/dL Creatinine 0.49 L (0.52-1.04) mg/dL Glucose 144 H (74-99) mg/dL Calcium 10.3 H (8.4-10.2) mg/dL AST 28 (14-36) U/L ALT 35 (9-52) U/L Alkaline Phosphatase 85 (38-126) U/L Total Protein 8.5 H (6.3-8.2) g/dL Albumin 5.2 H (3.5-5.0) g/dL Current Medications Generic Name Dose Route Start Last Admin Trade Name Freq PRN Reason Stop Dose Admin Acetaminophen 650 mg 05/18/18 19:03 05/18/18 19:21 Tylenol Tab PO 650 mg Q6HR PRN Administration Fever and/ or Pain Aspirin 325 mg 05/19/18 09:00 Aspirin PO DAILY PAM Nicotine 1 patch 05/18/18 15:00 05/18/18 15:15 Habitrol 14mg/24hr Patch TRANSDERM 1 patch DAILY PAM Administration Nitroglycerin 0.4 mg 05/18/18 10:39 Nitrostat SUBLINGUAL Q5M PRN Chest Pain Sodium Chloride 10 ml 05/18/18 21:00 05/18/18 22:56 Saline Flush IV 10 ml BID PAM Administration Intake and Output 05/18/18 05/19/18 05/19/18 22:59 06:59 14:59 Intake Total 200 Balance 200 Intake: Oral 200 Other: Voiding Method Toilet Toilet # Voids 2 2 05/18/18 09:11 05/18/18 09:11
--- NOTE | 2018-05-19 12:02 | ECHOF ---
Referral Reason:cp MEASUREMENTS -------- HEIGHT: 149.9 cm WEIGHT: 55.8 kg BP: 126/76 RVIDd: 2.8 cm (< 3.3) IVSd: 1.1 cm (0.6 - 1.1) LVIDd: 3.6 cm (3.9 - 5.3) LVPWd: 1.1 cm (0.6 - 1.1) IVSs: 1.3 cm LVIDs: 2.4 cm LVPWs: 1.3 cm LAESV Index (A-L): 17.04 ml/m Ao Diam: 2.5 cm (2.0 - 3.7) AV Cusp: 1.1 cm (1.5 - 2.6) MV E Len: 0.62 m/s MV DecT: 200 ms MV A Len: 0.85 m/s MV E/A Ratio: 0.72 RAP: 5.00 mmHg RVSP: 32.19 mmHg FINDINGS -------- Sinus rhythm. This was a technically good study. The left ventricular size is normal. There is borderline concentric left ventricular hypertrophy. Overall left ventricular systolic function is normal with, an EF between 55 - 60 %. The right ventricle is normal in size and function. Normal LA size by volume 22+/-6 ml/m2. The right atrium is normal in size. Aortic valve is trileaflet and is mildly thickened. There is no evidence of aortic regurgitation. There is no evidence of aortic stenosis. The mitral valve leaflets are mildly thickened. There is trace mitral regurgitation. Trace tricuspid regurgitation present. Right ventricular systolic pressure is normal at < 35 mmHg. There is no evidence of pulmonary hypertension. Trace/mild (physiologic) pulmonic regurgitation. The aortic root size is normal. Normal inferior vena cava with normal inspiratory collapse consistent with estimated right atrial pre ssure of 5 mmHg. There is no pericardial effusion. CONCLUSIONS -------- 1. Sinus rhythm. 2. This was a technically good study. 3. The left ventricular size is normal. 4. There is borderline concentric left ventricular hypertrophy. 5. Overall left ventricular systolic function is normal with, an EF between 55 - 60 %. 6. Normal LA size by volume 22+/-6 ml/m2. 7. Aortic valve is trileaflet and is mildly thickened. 8. The mitral valve leaflets are mildly thickened. 9. There is trace mitral regurgitation. 10. Trace tricuspid regurgitation present. 11. Right ventricular systolic pressure is normal at < 35 mmHg. 12. There is no evidence of pulmonary hypertension. 13. Trace/mild (physiologic) pulmonic regurgitation. 14. The aortic root size is normal. 15. There is no pericardial effusion. GASTROENTEROLOGIST: Gene Kumar RDCS
[2018-05-19] MEDS: NICOTINE 14MG/24HR PATCH TRANSDERM SCH (12:46)
[2018-05-19 12:53] VITALS: BP 129/70; PULSE 88; TEMP 98.4
--- NOTE | 2018-05-19 14:30 | P.DS ---
Providers Date of admission: 05/18/18 10:39 Expected date of discharge: 05/19/18 Attending physician: Eddie Reinoso Consults: 05/18/18 10:39 Consult Physician Urgent Consulting Provider: Ashutosh Kapadia Consult Reason/Comments: cp Do you want consulting provider notified?: Yes Primary care physician: Marcy Berry Hospital Course: Discharge diagnosis 1. Chest pain. Troponin negative. EKG completed showing sinus tachycardia heart rate 112. D-dimer 0.59. Chest x-ray completed showing no acute process. 2-D echo showing an EF of 55-60% with no evidence of pulmonary hypertension. Stress test completed and patient has been cleared for discharge from cardiology standpoint 2. Nicotine Dependence. Patient educated greater than 3 minutes on smoking sensation. Will Order nicotine patch at this time 3. Elevated total bilirubin 1.9. AST and ALT within normal limits. Patient's total bilirubin remains elevated at 2.9. Discussed with patient that she should follow-up with PCP and have a complete ultrasound of abdomen completed to evaluate for elevated total bilirubin. Patient is asymptomatic at this time 4. History of hysterectomy. Hospital course Is as a 47-year-old female patient of Dr. Berry. Patient presents to the ER with complaints of chest pain. Patient states that chest pain woke up from her sleep around 2 or 3 in the morning. Patient describes pain as sharp centralized pain in chest. Patient denies any radiation to neck jaw chest or back. Patient does report some associated dyspnea. Patient does reports she has chronic cough. Patient is a smoker one pack per day. Patient denies any significant cardiac history for herself. Patient does report cramping had heart attacks in the past. Patient denies any other significant medical history. Chest x-ray completed in ER showing no acute process. EKG completed showing sinus tachycardia. Troponin negative. Influenza negative. D-dimer 0.59 At this time patient denies chest pain or shortness of breath. Patient denies nausea vomiting or diarrhea. Patient denies any urinary burning or frequency. On 05/19/2018 patient is alert and oriented 3. Chest pain has resolved. Patient did undergo stress test and 2-D echo. Patient has been cleared by cardiology. Patient's total bilirubin elevated at 1.9. AST and ALT are within normal limits. Patient should follow-up with PCP and recommends full abdominal ultrasound for further evaluation. Patient verbalized understanding. At this time patient denies chest pain or shortness of breath. Patient denies nausea vomiting or diarrhea. CMP will be ordered for 2 days I performed an examination of the patient and discussed their management with the Nurse Practitioner. I have reviewed the Nurse Practitioner's notes and agree with the documented findings and plan of care Patient Condition at Discharge: Stable Plan - Discharge Summary Discharge Rx Participant: No New Discharge Prescriptions: New Nicotine 14Mg/24Hr Patch [Habitrol] 1 patch TRANSDERM DAILY #30 patch Discharge Medication List Nicotine 14Mg/24Hr Patch [Habitrol] 1 patch TRANSDERM DAILY #30 patch 05/19/18 [ Rx] Follow up Appointment(s)/Referral(s): Marcy Berry MD [Primary Care Provider] - 1-2 days Patient Instructions/Handouts: Cigarette Smoking and Your Health (GEN), Abuse of Alcohol (GEN), Alcohol Use Disorder (GEN) Discharge Disposition: HOME SELF-CARE
--- NOTE | 2018-05-20 13:18 | EST ---
EXERCISE STRESS DATE OF SERVICE: 05/19/2018 AGE: 47 SEX: Female HT: 4'11" WT: 123 pounds PROTOCOL: Jaspreet STAGE: II DURATION OF EXERCISE: 4 minutes HEART RATE REST: 100 BLOOD PRESSURE REST: 168/82 MAXIMUM HEART RATE ACHIEVED: 150 MAXIMUM BLOOD PRESSURE: 217/98 85% MPHR: 147 100% MPHR: 173 METS: 5.8 INDICATIONS: Chest pain. CLINICAL INFORMATION: STRESS DATA: Pretesting physical examination showed a heart rate 100, pressure is 168/82 mmHg. Baseline EKG showed sinus mechanism. The patient exercised on the treadmill according to Jaspreet protocol for a total of 4 minutes and achieved 5.8 METs. Max heart rate was 150, which is about 87% of maximum predicted heart rate. Maximum blood pressure was was 217/98 mmHg. Clinically, the patient did not have any symptoms of chest pain or discomfort and the EKG did not show any significant ST or T-wave abnormalities concerning for ischemia. CONCLUSION: 1. Average exercise tolerance. 2. Normal EKG in response to exercise. 3. Essentially normal exercise treadmill stress test for the patient. MMODL / IJN: [id number] /
== END 2018-05-19 14:54 | disposition home or self-care (01) ==
LOC: EC 08:47 → 1SOBS 10:39
PROVIDERS: ADMIT Internal Medicine; ATTEND Internal Medicine
DX: R07.89 Other chest pain (principal); R05 Cough; R06.00 Dyspnea, unspecified; M54.9 Dorsalgia, unspecified; R06.02 Shortness of breath; R00.0 Tachycardia, unspecified; M25.519 Pain in unspecified shoulder; E80.7 Disorder of bilirubin metabolism, unspecified; F10.10 Alcohol abuse, uncomplicated; F17.210 Nicotine dependence, cigarettes, uncomplicated; Z80.0 Family history of malignant neoplasm of digestive organs
CPT/HCPCS: 99285; 36415; 93005; 93017; 93306; 85379; 83880; 80061; 80053 ×2; 84443; 82150; 83690; 83735; 84484; 85025 ×2; 85610; 85730; 87502; 71046; G0378 ×2; S4990 ×2

== ENCOUNTER 2019-06-10 12:08 | Emergency (ER) | payer OTHER ==
[2019-06-10 12:14] VITALS: PULSE 91; RESP 18; TEMP 98
[2019-06-10 12:30] VITALS: BP 174/101
--- NOTE | 2019-06-10 12:47 | ED ---
General Adult HPI - General Chief complaint: Abdominal Pain Stated complaint: Needs Drs Note Source: patient Mode of arrival: ambulatory Limitations: no limitations - History of Present Illness Initial comments: The patient is a 49 old female with no past nuchal history of present the emergency department requesting a work note. She states that she was offered for The past week and with abdominal cramps and diarrhea. States that she missed 3 days worth of work because of it. States that all of her symptoms have improved. She never had any fevers or chills. No antibiotic use or travel. States that she now has formed stool. She never had any vomiting. No dysuria, hematuria or difficulty voiding. States that she has 100% improved and wants to go back to work. She did go to work today and her boss requested that she leads to get a work note to state that she could return to work. There are no other alleviating, precipitating or modifying factors - Related Data Previous Rx's Medication Instructions Recorded Nicotine 14Mg/24Hr Patch [Habitrol] 1 patch TRANSDERM DAILY #30 patch 05/19/18 Allergies Allergy/AdvReac Type Severity Reaction Status Date / Time No Known Allergies Allergy Verified 06/10/19 12:14 Review of Systems ROS Statement: Those systems with pertinent positive or pertinent negative responses have been documented in the HPI. ROS Other: All systems not noted in ROS Statement are negative. Past Medical History Past Medical History: No Reported History Additional Past Medical History / Comment(s): Occasional back and shoulder pain. History of Any Multi-Drug Resistant Organisms: None Reported Past Surgical History: Hysterectomy, Tubal Ligation Past Anesthesia/Blood Transfusion Reactions: No Reported Reaction Past Psychological History: No Psychological Hx Reported Smoking Status: Current every day smoker Past Alcohol Use History: Daily Past Drug Use History: Marijuana - Past Family History Mother Family Medical History: Cancer Father Family Medical History: Cancer Additional Family Medical History / Comment(s): Father had colon cancer with surgery. He is living. General Exam Limitations: no limitations Course Vital Signs 06/10/19 06/10/19 12:10 12:26 Temperature 98.0 F Pulse Rate 91 Respiratory 18 Rate Blood Pressure 190/91 174/101 O2 Sat by Pulse 98 Oximetry Medical Decision Making - Medical Decision Making Upon arrival the patient was placed into room 19. A thorough history and physical exam was performed. The patient does have a full physical exam which demonstrates no acute findings. At this time the patient will be given a work note stating that she is okay to go back to work. Follow-up with her doctor in 2-4 days. Return to the part for any new or worsening symptoms. The patient was discharged home in stable condition Disposition Clinical Impression: Normal physical exam, Hypertension Disposition: HOME SELF-CARE Condition: Stable Instructions (If sedation given, give patient instructions): Normal Exam (ED) Additional Instructions: Please follow-up with your doctor regarding your high blood pressure. Return to the emergency room for any new or worsening symptoms Is patient prescribed a controlled substance at d/c from ED?: No Referrals: None,Stated [Primary Care Provider] - 1-2 days Time of Disposition: 12:46
== END 2019-06-10 12:52 | disposition home or self-care (01) ==
LOC: EC 12:08
DX: I10 Essential (primary) hypertension (principal); F17.200 Nicotine dependence, unspecified, uncomplicated
CPT/HCPCS: 99283

== ENCOUNTER → 2019-11-02 | Outpatient (CLI) | payer OTHER ==
[2019-11-02 09:10] LABS: Basophils % (A) 1 %; Eosinophils # (A) 0.2 k/uL (0-0.7); Eosinophils % (A) 3 %; HCT 48.7 % (34.0-46.0); Lymphocytes # (A) 1.4 k/uL (1.0-4.8); Lymphocytes % (A) 24 %; MCH 32.6 pg (25.0-35.0); MCHC 32.9 g/dL (31.0-37.0); MCV 99.2 fL (80.0-100.0); Mean Platelet Volume 7.2; Monocytes # (A) 0.6 k/uL (0-1.0); Monocytes % (A) 10 %; Neutrophils # (A) 3.4 k/uL (1.3-7.7); Neutrophils % (A) 60 %; Platelet Count 318 k/uL (150-450); RBC 4.91 m/uL (3.80-5.40); RDW 12.3 % (11.5-15.5); WBC 5.8 k/uL (3.8-10.6)
[2019-11-02 16:36] LABS: Folate, Serum 9.9 ng/mL
[2019-11-02 17:10] LABS: Albumin 4.8 g/dL (3.80-4.90); Albumin/Globulin Ratio 1.71 (1.60-3.17); Anion Gap 8.5 mmol/L (4.00-12.00); BUN/Creat Ratio 11.67 Ratio (12.00-20.00); Calcium 9.6 mg/dL (8.7-10.3); Carbon Dioxide 26.5 mmol/L (21.6-31.8); Chol/HDL Ratio 2.04; Globulin 2.8 g/dL (1.6-3.3); LDL Cholesterol,Calculated 98.6 mg/dL (0.0-131.0); Potassium 4.4 mmol/L (3.5-5.5); Total Bilirubin 1.3 mg/dL (0.2-1.2); Total Protein 7.6 g/dL (6.2-8.2); VLDL Calculation 12.4 mg/dL (5.00-40.00)
[2019-11-02 17:33] LABS: Hemoglobin A1C 5.5 % (4.0-6.0)
== END | disposition home or self-care (01) ==
LOC: LABWHC1 08:02
PROVIDERS: ATTEND Family Medicine
DX: Z00.01 Encounter for general adult medical examination with abnormal findings (principal); Z13.1 Encounter for screening for diabetes mellitus; Z11.59 Encounter for screening for other viral diseases; E53.8 Deficiency of other specified B group vitamins; K21.9 Gastro-esophageal reflux disease without esophagitis
CPT/HCPCS: 36415; 80053; 80061; 82150; 82607; 82746; 83036; 83690; 84443; 85025; 86803

== ENCOUNTER → 2019-11-02 | Outpatient (CLI) | payer OTHER | END | disposition home or self-care (01) | LOC: CPPFTMAIN 08:58 | PROVIDERS: ATTEND Family Medicine | DX: J44.9 Chronic obstructive pulmonary disease, unspecified (principal) | CPT/HCPCS: 94060; 94726; 94729 ==

== ENCOUNTER → 2021-10-29 | Outpatient (CLI) | payer BC ==
--- NOTE | 2021-10-29 17:03 | CA ---
Transthoracic Echo Report Name: Meaghan Little Age: 51 Gender: F : 1970 Exam Date: 10/29/2021 14:05 Exam Location: [facility] Ht (in): 59 Wt (lb): 200 Ordering Physician: Melvin Mas MD Attending/Referring Phys: [id number], Tg Hasher Operator Ana Espino RDCS Procedure CPT: Indications: R06.09 FORMS OF DYSPNEA Cardiac Hx: Technical Quality: Fair Contrast 1: Total Dose (mL): Contrast 2: Total Dose (mL): MEASUREMENTS (Male / Female) Normal Values 2D ECHO LV Diastolic Diameter PLAX 4.2 cm 4.2 - 5.9 / 3.9 - 5.3 cm LV Systolic Diameter PLAX 3.0 cm IVS Diastolic Thickness 1.4 cm 0.6 - 1.0 / 0.6 - 0.9 cm LVPW Diastolic Thickness 1.5 cm 0.6 - 1.0 / 0.6 - 0.9 cm LV Relative Wall Thickness 0.7 RV Internal Dim ED PLAX 3.0 cm LA Volume 46.8 cm??? 18 - 58 / 22 - 52 cm??? M-MODE Aortic Root Diameter MM 2.2 cm LA Systolic Diameter MM 4.2 cm LA Ao Ratio MM 1.9 AV Cusp Separation MM 1.6 cm DOPPLER AV Peak Velocity 134.9 cm/s AV Peak Gradient 7.3 mmHg LVOT Peak Velocity 117.1 cm/s LVOT Peak Gradient 5.5 mmHg MV Area PHT 4.6 cm??? Mitral E Point Velocity 67.7 cm/s Mitral A Point Velocity 87.1 cm/s Mitral E to A Ratio 0.8 MV Deceleration Time 164.9 ms MV E' Velocity 6.0 cm/s Mitral E to MV E' Ratio 11.2 TR Peak Velocity 257.5 cm/s TR Peak Gradient 26.5 mmHg Right Ventricular Systolic Press 28.9 mmHg FINDINGS Left Ventricle Moderately increased left ventricular wall thickness. Normal left ventricular systolic function with no obvious regional wall motion abnormalities. Left ventricular ejection fraction is estimated at 55-60 %. Right Ventricle Normal right ventricular size. Right ventricular systolic pressure within normal limits. Right Atrium Normal right atrial size. Left Atrium Normal left atrial size. No evidence for an atrial septal defect. Mitral Valve Structurally normal mitral valve. Mild mitral regurgitation. Aortic Valve No aortic stenosis. No aortic regurgitation. Tricuspid Valve Mild tricuspid regurgitation. Pulmonic Valve Trace pulmonic regurgitation. Pericardium No pericardial effusion. Aorta Normal size aortic root and proximal ascending aorta. CONCLUSIONS Concentric left ventricular hypertrophy with normal LV systolic function with an ejection fraction of 55%. Mild mitral and tricuspid regurgitation. Previewed by: Dr. Chris Davies MD (Electronically Signed) Final Date: 29 October 2021 17:01
== END | disposition home or self-care (01) ==
LOC: RADECHMAIN 13:56
PROVIDERS: ATTEND Family Medicine
DX: I08.1 Rheumatic disorders of both mitral and tricuspid valves (principal)
CPT/HCPCS: 93306